=== PATIENT | female | born 1990 | race Caucasian/White ===

== ENCOUNTER → 2021-10-09 | Outpatient (CLI) | payer BC ==
[~2021-10-09] MED LIST: VITAMIN D250 MCG PO
== END ==
LOC: EXRD 07:29
DX: M25.472 Effusion, left ankle (principal)
CPT/HCPCS: 73610

== ENCOUNTER → 2021-10-10 | Outpatient (CLI) | payer BC | LOC: HEART 5 10-04 15:00 | DX: R07.9 Chest pain, unspecified (principal); R00.2 Palpitations | CPT/HCPCS: 93306 ==

== ENCOUNTER → 2021-10-22 | Outpatient (CLI) | payer BC | LOC: US 13:41 | DX: R60.0 Localized edema (principal) | CPT/HCPCS: 93971 ==